=== PATIENT | male | born 1935 | race Caucasian/White ===

== ENCOUNTER 2018-02-12 10:33 | Outpatient (CLI) | payer OTHER ==
[~2018-02-12] VITALS: Ht 185.4 cm; Wt 68.0 kg
[~2018-02-12 10:33] MED LIST: AMBIEN5 MG; BIAXIN500 MG PO; CLEOCIN HCL300 MG PO; CLONAZEPAM0.125 MG/T; LEVAQUIN750 MG PO; MIRTAZAPINE7.5 MG; RESTORIL15 M1 PO; TESSALON PERLE100 M1 PO; ZANTAC150 MG PO
== END 2018-02-12 10:45 | disposition home or self-care (01) ==
LOC: OFIC 805 10:33
DX: H61.23 Impacted cerumen, bilateral (principal); H90.3 Sensorineural hearing loss, bilateral

== ENCOUNTER 2018-09-12 12:15 | Outpatient (CLI) | payer OTHER ==
[~2018-09-12] VITALS: Ht 182.9 cm; Wt 68.0 kg
== END 2018-09-12 12:30 | disposition home or self-care (01) ==
LOC: EDBD 12:15 → OFIC 805 12:15
DX: H91.8X3 Other specified hearing loss, bilateral (principal); H61.23 Impacted cerumen, bilateral

== ENCOUNTER 2018-09-19 10:54 | Emergency (ER) | payer OTHER ==
[~2018-09-19] VITALS: Ht 182.9 cm; Wt 66.2 kg
== END 2018-09-19 13:25 | disposition home or self-care (01) ==
LOC: ER 10:54
DX: J06.9 Acute upper respiratory infection, unspecified (principal)